=== PATIENT | male | born 1995 | race Caucasian/White ===

== ENCOUNTER 2016-12-25 13:26 | Emergency (ER) | payer OTHER, BC ==
[~2016-12-25] VITALS: Ht 170.2 cm; Wt 72.7 kg
[2016-12-25 13:28] VITALS: BP 140/89; TEMP 99
[2016-12-25] MEDS ORDERED: PERCOCET 325 MG1 TA2 PO (14:55)
[2016-12-25] MEDS ORDERED: ULTRAM 50MG TAB50 MG PO (14:55)
[2016-12-25 15:03] VITALS: PULSE 78
== END 2016-12-25 15:04 | disposition home or self-care (01) ==
LOC: COL.ER 13:26
DX: M25.512 Pain in left shoulder (principal)

== ENCOUNTER 2018-11-01 20:14 | Emergency (ER) | payer OTHER ==
[~2018-11-01] VITALS: Ht 170.2 cm; Wt 75.5 kg
[~2018-11-01 20:14] MED LIST: PERCOCET 325 MG1 TA2 PO; ULTRAM 50MG TAB50 MG PO
[2018-11-01 21:27] VITALS: BP 120/62; PULSE 68; TEMP 98.1
[2018-11-01] MEDS ORDERED: NORCO 325 MG-51 TAB PO (21:28)
[2018-11-01] MEDS ORDERED: ILOTYCIN5 MG/GM OP (21:28)
== END 2018-11-01 21:54 | disposition home or self-care (01) ==
LOC: COL.ER 20:14
DX: T15.92XA Foreign body on external eye, part unspecified, left eye, initial encounter (principal); Z23 Encounter for immunization; F17.210 Nicotine dependence, cigarettes, uncomplicated

== ENCOUNTER 2021-09-08 10:58 | Emergency (ER) | payer OTHER ==
[~2021-09-08] VITALS: Ht 170.2 cm; Wt 68.2 kg
[~2021-09-08 10:58] MED LIST changes: +ILOTYCIN5 MG/GM OP; +NORCO 325 MG-51 TAB PO
[2021-09-08 11:27] VITALS: TEMP 98.1
[2021-09-08] MEDS ORDERED: ELIMITE TOP (12:24)
[2021-09-08 13:05] VITALS: BP 127/80; PULSE 81
== END 2021-09-08 13:05 | disposition home or self-care (01) ==
LOC: COL.ER 10:58
DX: R21 Rash and other nonspecific skin eruption (principal); F17.210 Nicotine dependence, cigarettes, uncomplicated